=== PATIENT | female | born 1975 | race Caucasian/White ===

== ENCOUNTER 2019-04-26 13:30 | Outpatient (CLI) | payer OTHER, SELFPAY ==
[2019-04-26 13:47] LABS: Basophils % 0.5 %; Eosinophils # 0.2 10^3/uL (0.0-0.8); Hematocrit 39.1 % (37.0-47.0); Lymphocytes # 2.9 10^3/uL (0.8-4.8); Lymphocytes % 38.5 %; Mean Corpuscular HGB Conc 33.2 g/dL (30.0-36.0); Mean Corpuscular Hemoglobin 31.4 pg (28.0-34.0); Mean Corpuscular Volume 94.4 fL (81-99); Mean Platelet Volume 10.9 fL (7.4-10.4); Monocytes # 0.3 10^3/uL (0.2-0.9); Monocytes % 3.3 %; Neutrophils # 4.2 10^3/uL (1.8-7.7); Neutrophils % 55.4 %; Nucleated Red Blood Cells % 0 %; Platelet Count 203 10^3/cmm (130-400); Red Blood Count 4.14 10^6/uL (4.1-5.3); Red Cell Distribution Width 13.2 % (12.1-15.1); White Blood Count 7.6 10^3/uL (4.0-10.0)
[2019-04-26 14:09] LABS: Alanine Aminotransferase 11 U/L (0-33); Alkaline Phosphatase 92 IU/L (35-105); Anion Gap 16.7 (5-19); Aspartate Amino Transferase 16 U/L (0-32); Blood Urea Nitrogen 11 mg/dL (6-20); Calcium 10.1 mg/Dl (8.6-10.0); Carbon Dioxide 26 mmol/L (22-29); Chloride 102 mmol/L (98-107); Ferritin 115 ng/mL (15-150); Glomerular Filtration Rate 108.6 mL/min (90-130); Glucose 112 mg/dL (74-109); Iron 93 ug/dL (37-145); Percent Saturation 39.7 % (20-50); Potassium 3.7 mmol/L (3.5-5.1); Sodium 141 mmol/L (136-145); Total Bilirubin 0.2 mg/dL (0.15-1.2); Total Iron Binding Capacity 234 mg/dL; Unsaturated Iron Binding 141 ug/dL (112-347)
[2019-04-26 14:16] LABS: Slide Review Slide Review Perform
--- NOTE | 2019-04-26 15:15 | ONC FU_ITS ---
Dr. Rodriguez follow up note Patient: Mariely Heard Unit #: [id number]: [id number] Dicatated By: Karen Rodriguez M.D.Date of Visit:Apr 26, 2019 Onc Med Follow-up/Prog Note History of Present Illness: Mrs. Mariely Heard, is a 43-year-old female with a family history of hemochromatosis( e.g. mother with hemochromatosis being treated with phlebotomy every 1-2 months, sister with 'one'hemochromatosis gene mutation) underwent screening for hereditary hemochromatosis on 09/03/2018 and DNA mutation analysis showed compound heterozygous for the C282Y and H63D mutations in her iron studies done on 09/03/2018 showed normal value e.g. portal iron 119 normal being 40-190, TIBC 315 normal being 250 -450, and transferrin saturation 38% normal being 11-50, ferritin 93 normal being 10-232. And CBC shows white blood count 6.3 hemoglobin 14.5 crit 43 platelets 260,000 Came for follow-up, denies any specific complaints except occasionally weakness and fullness in thyroid'. But no fever or chills no nausea or vomiting no jaundice, no abdominal pain, no palpitation or shortness of breath, no skin changes or pigmentation. Patient said she is watching her diet and avoiding iron rich foods . Medications: PARoxetine HCl 1 Tablet (of 20 mg) Oral daily Allergies: No Known Allergies. Review of Systems: Constitutional - Appetite is good and weight is stable. No fever, chills, hot flashes, or night sweats. Energy is fair, ENMT - No sinus congestion/drainage. No mouth sores. No sore throat or difficulty swallowing, Hematologic/Lymphatic - No abnormal bruising or bleeding, Respiratory - No shortness of breath. No cough. No pleuritic pain or hemoptysis, Cardiovascular - No angina pain. No palpitations, Gastrointestinal - No nausea or vomiting. No heartburn or acid reflux. No diarrhea or constipation. No blood in the stool or black stools, Genitourinary (F) - No dysuria or hematuria. No urinary frequency. No urgency or incontinence, Musculoskeletal - Occasional joint pain in right arm, Neurologic - Frequent headaches. No dizziness. Numbness/tingling in right hand, Psychiatric - Positive for anxiety and depression. Pt is medicated for this. Pt reports difficulty staying asleep. Vital Signs: Performed on Apr 26, 2019 14:45 Height - 64.00 in Weight - 147.0 lbs (HIGH) BSA - 1.72 sq.m BMI - 25.23 Temperature - 98.3 F (LOW) Pulse - 76 /min Respiration - 18 /min BP - 126/82 mm(hg) O2 Sat - 100 % Pain - 0 Performance Status: 0 - Fully active, able to carry on all predisease activities without restrictions. (ECOG) Physical Examination: ENMT - . No oral exudates, ulcers, masses, thrush or mucositis. Oropharynx clear. Tongue normal.no thyroid swelling, Respiratory - Lungs are clear to auscultation without rhonchi or wheezing, Abdomen - Non-tender, non-distended, no masses, ascites or hepatosplenomegaly. Good bowel sounds. No guarding or rebound tenderness. No pulsatile masses, Extremities - No visible deformities, no cyanosis, clubbing or edema. Pulses 4+ and equal bilaterally. Lab/Imaging: Test performed on Jan 03, 2019 08:12 Ferritin 115.0 ng/ml Iron 86 ug/dL Sodium 143 mmol/L Potassium 3.7 mmol/L % Iron Saturation 32.3 % Chloride 103 mmol/L CO2 25 mmol/L Anion Gap 18.7 BUN 10 mg/dL Creatinine 0.8 mg/dL Cr Clearance (Est) 89.5800 mL/min eGFR 77.9 mL/min Glucose 74 mg/dl Calcium 9.5 mg/dL Protein, Total 7.9 g/dL Albumin 4.6 g/dL Globulin 3.3 gm/dL Bilirubin, Total 0.2 mg/dL ALT (SGPT) 10 U/L AST (SGOT) 16 U/L Alkaline Phosphatase 111 U/L WBC 6.5 /cmm RBC 4.44 10 6/cmm HGB 14.3 g/dl HCT 41.3 % MCV 93.0 /cmm MCH 32.2 pg MCHC 34.7 g/dl RDW 14.2 % Platelet Count 186 10 3/cmm MPV 9.1 fl Neutrophils 3.7 10 3/cmm Lymphocytes 2.3 10 3/cmm Monocytes 0.3 10 3/cmm Eosinophils 0.1 10 3/cmm Basophils 0.1 10 3/cmm Neutrophil % 56.4 % Lymphocyte % 36.1 % Monocyte % 4.6 % Eosinophil % 2.0 % Basophils % 0.9 % Impression: Hereditary hemochromatosis with compound heterozygous for the C282Y and H63D mutations with no evidence of iron overload e.g. ferritin 93 and transferrin saturation 38% And any signs symptom due to iron overload , at the time of diagnosis on 09/03/2018 Family history of hemochromatosis in her mother who is being treated with phlebotomies every 1-2 months and sister with 'one' hemochromatosis gene mutation Plan: Discussed with patient regarding her labs white blood count 7.6 hemoglobin 13 crit 39.1 platelets 203,000 CMP within normal limits ferritin 115 compared to 115 on 01/03/2019 iron saturation 39.7 iron 93 Clinically, patient is doing well with no new signs symptoms. Her follow-up labs CBC and iron studies shows stable values, no change in ferritin level. Also discuss about obtaining baseline MRI scan of liver with hemochromatosis protocol but patient rather prefer observation at this point. Patient is concern but her thyroid she has history of thyroid problem, she is concern whether hemochromatosis is interfering with her thyroid function, at this point we'll check her TSH and patient was advised to follow with PMD regarding regarding her concern about thyroid. Next Return to clinic in 4 months with CBC and iron studies. Signed By: Karen Rodriguez M.D. <<Signature on File>>
[2019-04-26 18:58] LABS: Thyroid Stimulating Hormone 0.93 uIU/mL (0.27-4.20)
== END 2019-04-26 13:31 | disposition home or self-care (01) ==
LOC: ONCMED 13:30
PROVIDERS: Family Provider Nurse Practitioner Family; PCP Nurse Practitioner Family; Visit Provider Internal Medicine Hematology & Oncology
DX: E83.110 Hereditary hemochromatosis (principal); E07.9 Disorder of thyroid, unspecified; Z83.2 Family history of diseases of the blood and blood-forming organs and certain disorders involving the immune mechanism
CPT/HCPCS: 36415; 80053; 82728; 83540; 83550; 84443; 85025; G0463

== ENCOUNTER 2019-05-23 09:06 | Outpatient (CLI) | payer OTHER, SELFPAY ==
--- NOTE | 2019-05-23 09:10 | MM_ITS ---
WS: [id number] BILATERAL DIGITAL DIAGNOSTIC MAMMOGRAM MAMMOGRAPHY WITH CAD CLINICAL INFORMATION: LT BREAST LUMP HISTORY: COMPARISON: None. TECHNIQUE: Bilateral CC, MLO, and ML views. FINDINGS: The breasts are composed of heterogeneous fibroglandular density, which can limit the detection of sm all underlying mass lesions. A few lucent centered calcifications. Palpable marker left inferior breast. No definite mammographic abnormalities in this area. Ultrasound is pending. Right breast is normal. ULTRASOUND BREAST LEFT TECHNIQUE: Ultrasound left breast focused area of concern. CLINICAL INFORMATION: LT BREAST LUMP FINDINGS: Ultrasound left breast at the 3:00 position. A few incidental dilated ducts are visualized. No eviden ce of pathologic mass or lesion target for biopsy. No suspicious findings. MM/[place] [id number] IMPRESSION: BI-RADS: 2-Benign FOLLOW UP: 1 Year Follow-up Recommend return to annual screening mammography.
== END 2019-05-23 09:07 | disposition home or self-care (01) ==
LOC: RADSHAW 09:06
PROVIDERS: Family Provider Nurse Practitioner Family; PCP Nurse Practitioner Family; Visit Provider Nurse Practitioner Family
DX: N63.10 Unspecified lump in the right breast, unspecified quadrant (principal)
CPT/HCPCS: 76642; 77066

== ENCOUNTER → 2020-04-18 14:37 | Outpatient (BNVA) | payer OTHER, SELFPAY | PROVIDERS: Family Provider Nurse Practitioner Family; PCP Nurse Practitioner Family; Visit Provider Nurse Practitioner Family | DX: R35.0 Frequency of micturition (principal); N39.41 Urge incontinence; K59.09 Other constipation | CPT/HCPCS: 81003 ==

== ENCOUNTER → 2020-06-20 11:48 | Outpatient (BNVA) | payer OTHER, SELFPAY | PROVIDERS: Family Provider Nurse Practitioner Family; PCP Nurse Practitioner Family; Visit Provider Urology | DX: N39.41 Urge incontinence (principal); R31.9 Hematuria, unspecified; N39.9 Disorder of urinary system, unspecified; K59.09 Other constipation; R31.21 Asymptomatic microscopic hematuria | CPT/HCPCS: 81003; 87086; 88112 ==

== ENCOUNTER 2020-07-26 09:14 | Outpatient (CLI) | payer OTHER, SELFPAY ==
[2020-07-26] MEDS: iohexol 300 mg/mL 100 mL Btl IV (09:39)
--- NOTE | 2020-07-26 11:00 | CT_ITS ---
WS: [id number] CT ABDOMEN PELVIS TECHNIQUE: Noncontrast CT of the abdomen and contrast-enhanced CT of the abdomen and pelvis with blue nal and sagittal reformatted images. CLINICAL INFORMATION: MICROSCOPIC HEMATURIA COMPARISON: None. DLP: 1576.[address] scans at [facility] use at least one of these dose optimization techniques: automat ed exposure control; mA and/or kV adjustment per patient size (includes targeted exams where dose is matched to clinical indication); or iterative reconstruction. FINDINGS: Mild diffuse fatty infiltration liver. Normal portal vein and splenic vein. Normal GE junction. Splee n is normal. Adrenal glands are normal. Normal renal parenchymal enhancement. No hydronephrosis. Norm al caliber abdominal aorta. Normal corticomedullary differentiation. Normal excretion on the delayed images. Normal visualized bl adder. Lung bases are well aerated. No abdominal or pelvic lymphadenopathy. No inguinal lymphadenopathy. Tin y fat-containing umbilical hernia. Normal sigmoid colon. No evidence of small large bowel obstruction . Normal lumbar spine. CT/CT abdomen pelvis wo/w [id number] IMPRESSION: 1. No hydronephrosis in either kidney. No obstructing renal or ureteral calcul i. 2. Normal bilateral renal parenchymal enhancement with normal cortical medulla ry differentiation. Normal excretion on the delayed images. 3. Bladder is normal in appearance.
== END 2020-07-26 09:15 | disposition home or self-care (01) ==
LOC: CT 09:16
PROVIDERS: PCP Nurse Practitioner Family; Visit Provider Urology
DX: R31.21 Asymptomatic microscopic hematuria (principal)
CPT/HCPCS: 74178; 81003

== ENCOUNTER 2020-08-07 10:46 | Outpatient (CLI) | payer OTHER, SELFPAY ==
--- NOTE | 2020-08-07 10:48 | MM_ITS ---
WS: [id number] Bilateral screening digital mammogram, 08/07/2020 Clinical Data: SCREENING Comparison: 05/23/2019. Findings: There is an area of increased density posterior to the right areola measuring 1.4 cm which was not pr esent on the prior exam seen on the MLO view. No abnormality is seen on the right cc view. The breast parenchymal pattern shows heterogeneous density. The left breast is normal. There are lymp h nodes in both axilla. MM/[place] [id number] Impression: 1. Increased density in the retroareolar area of the right breast and recommen d right breast ultrasound. 2. The left breast is unremarkable.. BIRADS: 0-Incomplete: Need additional imaging evaluation FOLLOW UP: See Report The CAD checker dump grounds was used.
== END 2020-08-07 10:47 | disposition home or self-care (01) ==
LOC: RADSHAW 10:48
PROVIDERS: PCP Nurse Practitioner Family; Visit Provider Nurse Practitioner Family
DX: Z12.31 Encounter for screening mammogram for malignant neoplasm of breast (principal)
CPT/HCPCS: 77067

== ENCOUNTER 2020-09-13 09:12 | Outpatient (CLI) | payer OTHER, SELFPAY ==
--- NOTE | 2020-09-13 09:19 | MM_ITS ---
WS: [id number] Right breast diagnostic digital mammogram, 09/13/2020 Clinical Data: ABNORMAL MAMMOGRAM Comparison: 08/07/2020, 05/23/2019. Findings: There is increased density in the retroareolar area of the right breast. No spiculated masses or clus tered calcifications are seen. No distinct well bordered masses are present. MM/[place] [id number] Impression: 1. Increased density in retroareolar area of the right breast which ultrasound shows dilated ducts. 2. Recommend return to annual screening mammograms. BIRADS: 2-Benign FOLLOW UP: 1 Year Follow-up The CAD swatch checker was used.
--- NOTE | 2020-09-13 09:19 | US_ITS ---
WS: [id number] Right breast ultrasound, 09/13/2020 Clinical Data: ABNORMAL MAMMOGRAM Comparison: Spot mammogram of the right breast, 09/13/2020 Findings: In the retroareolar region of the right breast corresponding to the area of increased density on the mammogram only dilated ducts are seen. There are no cysts or masses. US/US breast RT limited* [id number] Impression: 1. Dilated mammary ducts in the retroareolar region of the right breast. 2. Recommend return to annual screening mammograms. BIRADS: 2-Benign FOLLOW UP: 1 Year Follow-up
== END 2020-09-13 09:13 | disposition home or self-care (01) ==
LOC: RADSHAW 09:15
PROVIDERS: PCP Nurse Practitioner Family; Visit Provider Nurse Practitioner Family
DX: R92.8 Other abnormal and inconclusive findings on diagnostic imaging of breast (principal)
CPT/HCPCS: 76642; 77065

== ENCOUNTER 2022-04-23 13:02 | Outpatient (CLI) | payer OTHER, SELFPAY ==
--- NOTE | 2022-04-23 13:08 | CT_ITS ---
WS: [id number] CT ABDOMEN AND PELVIS WITH CONTRAST HISTORY: R FLANK PAIN TECHNIQUE: Imaging performed of the abdomen and pelvis with IV contrast. Single phase imaging of the abdomen. Coronal and sagittal reformats are submitted. All CT scans at [facility] use at [address] one of these dose optimization techniques: automated exposure control; mA and/or kV adjustment per patient size (includes targeted exams where dose is matched to clinical indication); or iterative re construction. IV CONTRAST: Omnipaque 350; 95 mL IV. Oral contrast: Yes. DLP: 421.89 mGy.cm COMPARISON: 07/26/2020 Lower thorax: Lung bases are clear. Heart is normal size. No hiatal hernia. Liver/biliary system: Normal size with no intrahepatic dilatation. Gallbladder: Normal. No gallstones or wall thickening. No pericholecystic fluid. Pancreas: Normal size pancreas and pancreatic duct. No adjacent inflammation. Spleen: Normal size spleen. No mass or infarct. Adrenal glands: Normal. Right kidney: Normal. Left kidney: Normal. Aorta: Mild atherosclerosis with no aneurysm. Lymphadenopathy: None. Free fluid: None. GI tract: Well-distended stomach. No small bowel obstruction. Normal appendix. Moderate diffuse fecal retention and constipation throughout the entire colon. Abdominal wall: Unremarkable abdominal wall. No hernia. Pelvis: No free fluid or adenopathy within the pelvis. Bones: Unremarkable. CT/CT abdomen pelvis w con* [id number] IMPRESSION: 1. No renal obstruction or perinephric stranding. 2. No acute abdominal or pelvic abnormalities. 3. Normal appendix. 4. Diffuse constipation.
[2022-04-23] MEDS: iohexol 350 mg/mL 500 mL Btl (per mL) IV (14:48)
[2022-04-23] MEDS: iohexol 350 mg/mL 500 mL Btl (per mL) PO (14:48)
== END 2022-04-23 13:03 | disposition home or self-care (01) ==
LOC: RAD 13:02
PROVIDERS: PCP Nurse Practitioner Family; Visit Provider Nurse Practitioner Family
DX: R10.9 Unspecified abdominal pain (principal); K59.00 Constipation, unspecified
CPT/HCPCS: 74177; Q9967

== ENCOUNTER 2022-04-24 09:11 | Outpatient (CLI) | payer OTHER, SELFPAY ==
--- NOTE | 2022-04-24 09:18 | MM_ITS ---
WS: [id number] DIAGNOSTIC BILATERAL DIGITAL BREAST TOMOSYNTHESIS MAMMOGRAPHY WITH CAD RIGHT breast ultrasound, limited HISTORY: RT BREAST LUMP COMPARISON: 09/13/2020, 08/07/2020, 05/23/2019 TECHNIQUE: Bilateral craniocaudad, mediolateral oblique, and mediolateral views are submitted with to mosynthesis and SM. Spot compression views RIGHT MLO. Computer aided detection utilized. Breast composition: There are scattered areas of fibroglandular density. Palpable marker in the upper outer quadrant of the RIGHT breast. No underlying abnormality is identified. Increased density poste rior to the RIGHT nipple to prior studies. RIGHT breast ultrasound, limited. Ultrasound upper outer quadrant of the RIGHT breast near the axillary tail is performed. Ultrasound d irected to the palpable area as directed by the patient. There are benign lymph nodes. No solid mass. MM/[place] [id number] IMPRESSION: BI-RADS: 2-Benign FOLLOW UP: 1 Year Follow-up
== END 2022-04-24 09:12 | disposition home or self-care (01) ==
PROVIDERS: PCP Nurse Practitioner Family; Visit Provider Nurse Practitioner Family
DX: N63.11 Unspecified lump in the right breast, upper outer quadrant (principal)
CPT/HCPCS: 76642; 77062; G0279

== ENCOUNTER 2023-03-31 13:11 | Outpatient (CLI) | payer OTHER, SELFPAY ==
--- NOTE | 2023-03-31 13:46 | USR_ITS ---
PROCEDURE INFORMATION: Exam: US Soft Tissue Head and Neck, Thyroid Exam date and time: 03/31/2023 2:03 PM Age: 47 years old Clinical indication: Condition or disease; Other: Nodule; Additional info: Thyroid nodule TECHNIQUE: Imaging protocol: Real-time ultrasound scan of the neck with image documentation. Exam focused on the thyroid. COMPARISON: No relevant prior studies available. FINDINGS: Right thyroid lobe: The right lobe measures 4.7 x 1.8 x 1.4 cm for a volume of 6.2 cc. There is an ovoid well-defined hypoechoic solid nodule with no visible internal calcifications in the inferior right lobe measuring 7 mm length and 2 x 2 mm axial dimension. The nodule is suboptimally imaged in the axial plane. Background parenchymal echotexture in the right lobe is normal. Left thyroid lobe: The left lobe is relatively atrophic measuring 1.8 x 0.7 x 0.6 cm for a volume of less than 1 cc. No nodules are seen in the left lobe. Left lobe parenchymal echotexture is normal. Isthmus: The isthmus measures 3 mm in thickness. Lymph nodes: No visible cervical lymphadenopathy. US/US thyroid [id number] IMPRESSION: 1. 7 mm nodule in the right lobe.TI-RADS category TR4, Moderately Suspicious. No fine needle aspiration or follow-up ultrasound is recommended based on size less than 1 cm. (Reference: Madi) 2. Atrophy or partial resection of the left lobe. REFERENCES: Madi FN, Randi WD, Ryan HENSON et al. ACR Thyroid Imaging, Reporting and Data System (TI-RADS): White Paper of the ACR TI-RADS Committee. J Am Tri Radiol. 2017; 14: 587-595.
== END 2023-03-31 13:12 | disposition home or self-care (01) ==
LOC: RAD 13:12
PROVIDERS: PCP Nurse Practitioner Family; Visit Provider Nurse Practitioner Family
DX: E04.1 Nontoxic single thyroid nodule (principal)
CPT/HCPCS: 76536

== ENCOUNTER 2024-07-13 11:16 | Outpatient (CLI) | payer OTHER, SELFPAY ==
--- NOTE | 2024-07-13 11:20 | MM_ITS ---
WS: [id number] SCREENING DIGITAL BREAST TOMOSYNTHESIS MAMMOGRAM WITH CAD HISTORY: SCREENING COMPARISON: 04/24/2022, 09/13/2020, 05/23/2019 Bilateral CC and MLO with tomosynthesis and synthetic mammography submitted. Computer aided detection analyzed. Breast composition: The breasts are heterogeneously dense, which may obscure small masses. There are 2 new very small masses in the medial RIGHT breast at mid to posterior depth. Mass at 9:00 measures 2 x 3 x 4 mm. There is a slightly more anterior mass which is probably also near 8-9 o'clock measuring 2 x 2 x 4 mm. No associated calcifications or distortion. LEFT breast is negative. MM/MM scr BI tomosynthesis [id number] IMPRESSION: BI-RADS: 0 - Incomplete: Need additional imaging evaluation FOLLOW UP: Need Additional Imaging RIGHT breast: Spot compression views (CC and MLO). True ML. Ultrasound to follo w if abnormality persists.
== END 2024-07-13 11:17 | disposition home or self-care (01) ==
LOC: MOBLMAM 11:18
PROVIDERS: PCP Nurse Practitioner Family; Visit Provider Nurse Practitioner Family
DX: Z12.31 Encounter for screening mammogram for malignant neoplasm of breast (principal); R92.333 Mammographic heterogeneous density, bilateral breasts; N63.15 Unspecified lump in the right breast, overlapping quadrants
CPT/HCPCS: 77063; 77067

== ENCOUNTER 2024-07-31 07:41 | Outpatient (CLI) | payer OTHER, SELFPAY ==
--- NOTE | 2024-07-31 07:46 | MM_ITS ---
WS: [id number] ADDITIONAL VIEWS RIGHT MAMMOGRAM WITH DIGITAL BREAST TOMOSYNTHESIS. RIGHT BREAST ULTRASOUND HISTORY: MASS OF R BREAST COMPARISON: 09/13/2020, 04/24/2022, 07/13/2024 RIGHT MAMMOGRAM: Spot compression views and true ML with digital breast tomosynthesis and SM. Breast composition: The breasts are heterogeneously dense, which may obscure small masses. Lobulated mass in the posterior RIGHT breast persists just above the nipple line and medial. Lobulated mass measures 4 x 5 x 5 mm. There are 2 additional very tiny 2 to 3 mm masses in the medial RIGHT breast near 3:00. No suspicious grouping of calcifications or distortion. RIGHT BREAST ULTRASOUND 2-D and color Doppler imaging submitted. Ultrasound directed to the medial breast at and just above the nipple line performed. There are numerous very tiny cysts and lymph nodes identified. Whether these correspond to the mammographic abnormality is difficult to tell due to the very small size. There are no areas of shadowing or suspicious di stortion. MM/MM diag RT tomosynthesis [id number] IMPRESSION: BI-RADS: 3 - Probably Benign FOLLOW UP: 6 Month Follow-up Recommend diagnostic RIGHT breast 6-month follow-up and possible ultrasound if these very small masses persists. Favor these are probably a combination of sma ll lymph nodes and cysts.
== END 2024-07-31 07:42 | disposition home or self-care (01) ==
PROVIDERS: PCP Nurse Practitioner Family; Visit Provider Registered Nurse
DX: N63.10 Unspecified lump in the right breast, unspecified quadrant (principal); N63.15 Unspecified lump in the right breast, overlapping quadrants; R59.0 Localized enlarged lymph nodes; R92.331 Mammographic heterogeneous density, right breast
CPT/HCPCS: 76642; 77061; G0279

== ENCOUNTER 2025-02-20 10:14 | Outpatient (CLI) | payer OTHER, SELFPAY ==
--- NOTE | 2025-02-20 10:18 | MM_ITS ---
WS: [id number] DIAGNOSTIC RIGHT DIGITAL BREAST TOMOSYNTHESIS MAMMOGRAPHY WITH CAD RIGHT breast ultrasound, limited HISTORY: 6-month follow-up masses in the medial RIGHT breast. COMPARISON: 07/31/2024, 07/13/2024, 04/24/2022 Breast composition: There are scattered areas of fibroglandular density. Asymmetries are noted in the medial RIGHT breast at a middle depth. Seen best on the CC projection. The largest measures 6 x 2 mm. There is a smaller round mass measuring 2 x 3 mm. No additional abnormalities. These are unchanged in size by mammography. RIGHT breast ultrasound, limited. RIGHT breast at 2:00 demonstrates a small ovoid cyst measuring 5 x 4 x 2 mm. There are a few small dilated ducts. No solid mass or area of shadowing identified. MM/MM diag RT tomosynthesis [id number] IMPRESSION: BI-RADS: 3 - Probably Benign. FOLLOW UP: 6 Month Follow-up Recommend annual mammogram in July 2025. The indeterminate masses in the media l RIGHT breast which are stable will be reevaluated at that time with possible spot compression views and ultrasound.
== END 2025-02-20 10:15 | disposition home or self-care (01) ==
LOC: RAD 10:15
PROVIDERS: PCP Nurse Practitioner Family; Visit Provider Nurse Practitioner Family
DX: R92.8 Other abnormal and inconclusive findings on diagnostic imaging of breast (principal); N64.89 Other specified disorders of breast; N60.01 Solitary cyst of right breast; N63.10 Unspecified lump in the right breast, unspecified quadrant
CPT/HCPCS: 76642; 77061; G0279